=== PATIENT | male | born 1965 | race Hispanic/Latino ===

== ENCOUNTER → 2017-04-14 | Day surgery (SDC) | payer OTHER ==
[~2017-04-14] MED LIST: AMPICILLIN SOD/SULBACTAM 3GM 100 ML IV ONE; BELLADONNA/OPIUM 60 MG SUPP PR ONE; CEFTRIAXONE SOD 1 GM VIAL IV SCH; CIPRO500 MG PO; DEXAMETHASONE SOD PHOS INJ 4 MG/ML VIAL ONE; FENTANYL CITRATE/PF 100MCG/2 ML INJ ONE; FLOMAX0.4 MG PO; GENTAMICIN SULFATE IV SCH; IOPAMIDOL 610MG/1ML 300 MG/ML VIAL IV ONE; KETOROLAC TROMETHAMINE 30 MG/ML VIAL ONE; LIDOCAINE HCL 2% LOCAL INJ 5 ML SDV VIAL INJ ONE; MIDAZOLAM HCL 2 MG/2 ML VIAL ONE; ONDANSETRON HCL INJ 2 MG/ML VIAL ONE; PROPOFOL IV EMULSION 10 MG/ML 20 ML VIAL ONE; ROCURONIUM BROMIDE 10 MG/ML 5ML VIAL ONE; SEVOFLURANE INHAL SOLN 250 ML PEN BTL ONE; SODIUM CHLORIDE 0.9% IV SCH
--- NOTE | 2017-05-28 08:30 | Operative Report ---
DATE OF PROCEDURE: April 14, 2017 PREOPERATIVE DIAGNOSES 1. Obstructive BPH. 2. Urinary tract infections. drained the his urethral stricture disease. POSTOPERATIVE DIAGNOSES 1. Obstructive BPH. 2. Urinary tract infections. 3. Urethral stricture disease at the fossa navicularis. OPERATIONS PERFORMED 1. Cystourethroscopy with calibration and dilation of urethral stricture disease (separate procedure performed for the diagnosis of the stricture). 2. Cystourethroscopy with bilateral ureteral catheterization and retrograde ureteropyelography (separate procedure performed for the urinary tract infections). 3. Interpretation of retrograde ureteropyelography. 4. Supervision of fluoroscopy. No radiologist present. 5. Cystourethroscopy with transurethral resection of prostate utilizing the plasma button electrode. ANESTHESIA: General. COMPLICATIONS: None. CLINICAL SUMMARY: Ayan Brown is a 51-year-old man with urinary retention and chronic indwelling Warner catheter. The patient had a urodynamics study, which revealed a detrusor contraction. The patient is brought to the operating room for management of his obstructive BPH. He is aware the risks of bleeding, infection, injury to adjacent structures, need for additional procedures, and elected to proceed. OPERATIVE PROCEDURE IN DETAIL: Informed consent was verified. Ayan Brown was properly identified and taken to the operating room and placed on the cystoscopy table in the supine position. Anesthesia was uneventfully begun. The patient was then carefully and gently repositioned in the dorsal lithotomy position with all pressure points well-padded. His genitalia were prepared and draped in the usual sterile fashion. The 22.5-Taiwanese cystoscope sheath with the visual obturator in place could not be easily placed through the fossa navicularis. We were able to place the cystoscope into the meatus, but proximal to the meatus the stricture did not allow a scope of the size of 22-Taiwanese to pass. We dilated the fossa navicularis gently from 18-Taiwanese to 28-Taiwanese in size. We were then easily able to place the 22.5-Taiwanese cystoscope sheath through the otherwise unremarkable urethra, past a normal sphincteric region, through the prostate bed, which was significant for obstructive BPH with kissing lateral lobes and elevated median bar. We entered the patient's bladder where panendoscopy revealed at least grade 2 and probably grade 3 trabeculations, but no tumors, no stones and no diverticula. Normally positioned and configured ureteral orifices were identified. A ureteral catheter was used to cannulate each ureter, and retrograde ureteropyelography performed. Interpretation of retrograde ureteropyelography. Contrast was instilled in a retrograde fashion bilaterally. There were no tumors, no stones and no diverticula. Unobstructed drainage was observed bilaterally fluoroscopically. Severe J-hooking was noted bilaterally, and there was ureteral tortuosity more prominent at the distal left ureter than the distal right ureter. We removed the cystoscope after draining the bladder, and under direct vision we inserted the respect cystoscope. We utilized the visual obturator. We then proceeded with performing a transurethral resection of the prostate utilizing the plasma button electrode. Vaporization of the prostate was first carried to the level of the bladder neck. We vaporized the prostate from the bladder neck too, but never passed the verumontanum and down to the surgical capsule. Hemostasis was achieved with pinpoint electrocautery. The resectoscope was withdrawn. The Warner catheter was placed. It was irrigated to and fro to ensure it worked properly. A belladonna and opium suppository was placed revealing at least a 50 g prostate that was smooth, nonfluctuant and without any nodules. The patient was then uneventfully reversed from anesthesia, and taken to the recovery room in stable condition. There were no complications to the procedure. The patient tolerated the procedure well. Estimated blood loss minimal. Explicit postoperative instructions were given. Will plan to follow the patient up in the office at which point in time we will plan to perform uroflowmetry and bladder ultrasonography. Job#: [id number] DARRELL
== END | disposition home or self-care (01) ==
LOC: OR 05:40
PROVIDERS: ATTEND Urology
DX: N40.1 Benign prostatic hyperplasia with lower urinary tract symptoms (principal); N17.9 Acute kidney failure, unspecified; N13.8 Other obstructive and reflux uropathy; R33.8 Other retention of urine; N35.9 Urethral stricture, unspecified; N39.0 Urinary tract infection, site not specified; N32.89 Other specified disorders of bladder; N13.30 Unspecified hydronephrosis; Z01.810 Encounter for preprocedural cardiovascular examination; Z68.30 Body mass index [BMI] 30.0-30.9, adult
CPT/HCPCS: 52005; 52601; 74420; 93005; J0295; J0696; J1100; J1580; J1885; J2001; J2250; J2405; Q9967

== ENCOUNTER 2017-04-21 16:39 | Emergency (ER) | payer OTHER ==
[~2017-04-21] VITALS: Ht 162.6 cm; Wt 77.1 kg
[~2017-04-21 16:39] MED LIST changes: -AMPICILLIN SOD/SULBACTAM 3GM 100 ML IV ONE; -BELLADONNA/OPIUM 60 MG SUPP PR ONE; -CEFTRIAXONE SOD 1 GM VIAL IV SCH; -DEXAMETHASONE SOD PHOS INJ 4 MG/ML VIAL ONE; -FENTANYL CITRATE/PF 100MCG/2 ML INJ ONE; -GENTAMICIN SULFATE IV SCH; -IOPAMIDOL 610MG/1ML 300 MG/ML VIAL IV ONE; -KETOROLAC TROMETHAMINE 30 MG/ML VIAL ONE; -LIDOCAINE HCL 2% LOCAL INJ 5 ML SDV VIAL INJ ONE; -MIDAZOLAM HCL 2 MG/2 ML VIAL ONE; -ONDANSETRON HCL INJ 2 MG/ML VIAL ONE; -PROPOFOL IV EMULSION 10 MG/ML 20 ML VIAL ONE; -ROCURONIUM BROMIDE 10 MG/ML 5ML VIAL ONE; -SEVOFLURANE INHAL SOLN 250 ML PEN BTL ONE; -SODIUM CHLORIDE 0.9% IV SCH
[2017-04-21 18:14] LABS: BILIRUBIN,URINE NEGATIVE (NEGATIVE); KETONES,URINE NEGATIVE (NEGATIVE); LEUKOCYTE ESTERASE ,URINE 1+ (NEGATIVE); NITRITE,URINE NEGATIVE (NEGATIVE); URINE UROBILINOGEN 0.2 mg/dL (0.2 - 1)
[2017-04-21 18:15] LABS: CLARITY,URINE CLEAR (CLEAR); COLOR,URINE RED (YELLOW); PROTEIN,URINE DIPSTICK 1+ (NEGATIVE)
[2017-04-21 18:50] LABS: BACTERIA,URINE FEW /HPF; EPITHELIAL CELLS,URINE RARE /LPF; RBC,URINE 21-50 /HPF (0-5)
[2017-04-21 18:51] LABS: YEAST,URINE FEW
== END 2017-04-21 18:42 | disposition home or self-care (01) ==
LOC: ER 16:39
DX: R33.9 Retention of urine, unspecified (principal); Z87.438 Personal history of other diseases of male genital organs; R10.30 Lower abdominal pain, unspecified
CPT/HCPCS: 81001; 87086; 99283